=== PATIENT | female | born 1950 | race Caucasian/White ===

== ENCOUNTER 2018-10-21 09:40 | Day surgery (SDC) | payer OTHER ==
[2018-10-21] MEDS ORDERED: BUPIVACAINE 0.5% PF 10 ML VIAL ONE (09:43)
[2018-10-21] MEDS ORDERED: ALBUTEROL 2.5 MG/3 ML NEB SOL NEB ONE (09:59)
[2018-10-21] MEDS ORDERED: Ringers Lactate 1,000 ML IV ONE ×2 (09:59→11:27)
[2018-10-21] MEDS ORDERED: CEFOXITIN/SWI 1gm 1 GM/10 ML SYR ONE (09:59)
--- NOTE | 2018-10-21 10:01 | RAD REPORT ---
EXAM DESCRIPTION: RAD - Chest Pa And Lat (2 Views) - 10/21/2018 9:51 am CLINICAL HISTORY: PRE-OP Chest pain. COMPARISON: Chest Pa And Lat (2 Views) dated 09/10/2018; Chest Pa And Lat (2 Views) dated 08/06/2016 FINDINGS: Linear atelectasis is seen in the right mid lung. Opacity in the right lung base is likely related to a small right pleural effusion. The heart is mildly prominent in size. No displaced fract ures.
[2018-10-21] MEDS ORDERED: ALBUTEROL 2.5 MG/3 ML NEB SOL ONE (10:10)
[2018-10-21 10:17] LABS: Absolute Monocytes 0.9 K/uL (0.1-1.3); Basophils % 0.3 % (0-1.3); Eosinophils % 1.2 % (0-4.4); Hematocrit 43.1 % (36.0-45.0); Lymphocytes % 19.8 % (15.3-44.8); MPV 8.7 fL (7.6-11.3); Monocytes % 8.8 % (3.3-12.3); RBC Red Blood Cell Count 4.73 M/uL (3.86-4.86)
[2018-10-21] MEDS ORDERED: METHYLPREDNISOLONE 125 MG INJ ONE (10:23)
[2018-10-21 10:32] LABS: Albumin 4.1 g/dL (3.4-5.0); Bilirubin Direct 0.1 mg/dL (0-0.2); Bilirubin Total 0.4 mg/dL (0.2-1.0); Potassium 3.9 mmol/L (3.5-5.1); Protein, Total 8.2 g/dL (6.4-8.2)
[2018-10-21] MEDS ORDERED: PROPOFOL 200 MG/20 ML VIAL IV ONE (10:36)
[2018-10-21] MEDS ORDERED: MIDAZOLAM HCL 2 MG/2 ML INJ ONE (10:36)
[2018-10-21] MEDS ORDERED: GLYCOPYRROLATE 0.2 MG/ML SYR ONE ×2 (10:37)
[2018-10-21] MEDS ORDERED: LIDOCAINE 2% MPF 5 ML VIAL ONE (10:37)
[2018-10-21] MEDS ORDERED: FENTANYL CITR 250 MCG/5 ML ONE (10:39)
[2018-10-21] MEDS ORDERED: ROCURONIUM 50 MG/5 ML VIAL IV ONE (10:40)
[2018-10-21] MEDS ORDERED: ONDANSETRON 4 MG/2 ML VIAL ONE (10:41)
[2018-10-21] MEDS ORDERED: NEOSTIGMINE 1 MG/ML -10 ML VIAL ONE (10:41)
--- NOTE | 2018-10-21 10:56 | EKG ---
Test Date: 2018-10-21 Test Time: 08:54:54 Business Analyst Manager: OMAR MEASUREMENT RESULTS: Intervals: Rate: 68 OH: 156 QRSD: 78 QT: 426 QTc: 452 [place]: P: 55 OH: 156 QRS: 24 T: 87 INTERPRETIVE STATEMENTS: Normal sinus rhythm Possible Inferior infarct, age undetermined Abnormal ECG No previous ECG available for comparison Electronically Signed On 10-21-18 10:54:58 MANUFACTURING APPLICATIONS ENGINEER by Roland Wilson
[2018-10-21] MEDS ORDERED: EPHEDRINE SULF 50 MG/ML VIAL ONE (11:09)
--- NOTE | 2018-10-21 11:34 | P.BOP ---
Preoperative diagnosis: acute cholecystitis, symptomatic cholelithiasis, incarcerated umbilical her Postoperative diagnosis: same Primary procedure: 1. Laparoscopic cholecystectomy Secondary procedure: 2. open repair of incarcerated umbilical hernia Estimated blood loss: <10cc Specimen: gb Anesthesia: General Complications: None Transferred to: Recovery Room Condition: Good
[2018-10-21] MEDS ORDERED: HYDROCODONE/APAP 5/325 MG TAB ONE (13:14)
--- NOTE | 2018-10-21 22:51 | OP ---
Date of Procedure: 10/21/2018 Surgeon: Aron Robbins MD Preoperative Diagnoses: Acute cholecystitis, symptomatic cholelithiasis, incarcerated umbilical juanita ia. Postoperative Diagnoses: Acute cholecystitis, symptomatic cholelithiasis, incarcerated umbilical her juliane. Procedures: 1.Laparoscopic cholecystectomy. 2.Open repair of incarcerated umbilical hernia. Specimen: Gallbladder. Anesthesia: General plus local. Indications: This is the case of a 68-year-old patient, comes to us with above diagnosis. Grayson si gn positive, acute abdominal pain. She was advised importance of laparoscopic, possible open cholecy stectomy with benefits and risks including, but not limited to infection, bleeding, damage to adjacen t structures, anesthesia complications, choledocholithiasis, bile leak, pancreatitis, [place] and even sreedhar th. She also understands this may not relieve the symptoms. She might need more than one surgical i ntervention. She understood and signed a consent. Description Of Procedure: The patient was brought to the operating room and placed in supine positio n. Anesthesia was without complication. Abdominal area was prepped and draped in a sterile fashion. Marcaine 0.5% was injected for local anesthetic, followed by sharp incision of the skin in the infr aumbilical region. We noticed the patient to have a small umbilical hernia with incarcerated omentum and carefully reduce it back into the abdominal cavity after fully inspected making sure it was okay and removed some adhesions from the small hernia sac. The fascia edges were cleaned. After that, I placed Vicryl #1 inside the fascia. Kike trocar was carefully introduced. No bleeding was obtain ed. After that, I placed 3 more trocars in the right upper quadrant under direct visualization. The gallbladder was distended, so we put an Endo needle under direct visualization, aspirate the gallbla dder, remove the needle under direct visualization and then put a grasper in the fundus of the gallbl adder, another grasper in the infundibulum, retracted the gallbladder in the inferolateral fashion ex posing the triangle of Calot, obtaining critical view of safety. The cystic duct and cystic artery w ere clearly isolated free circumferentially and a connection between those and the gallbladder were c learly identified. I proceeded to ligate those by using at least 3 clips proximal, 1 clip distal, li gation in middle. Same was done with the cystic artery. No bile leak. No bleeding. The gallbladde r was removed from liver using Bovie cauterizer and removed from abdominal cavity using an EndoCatch through the umbilical incision. The area was irrigated. Suction was done. Clips were intact. No b ile leak. No bleeding. The gallbladder fossa with no bile leak. No bleeding. At that moment, I pr oceeded to remove the trocars in direct vision. Deflated the pneumoperitoneum. Closed the fascia wi th #1 Vicryl, close the umbilical hernia with #1 Vicryl. Irrigated subcutaneous tissue, closed with 3-0 Chromic and skin with margaret. Sponge count and instrument counts were correct. The patient jose erated the procedure well. The patient was sent to recovery in stable condition. Disposition: Home. Activity: As tolerated. No heavy lifting. Followup: Follow up in my office in 1 week. Call for appointment [phone]. Keep the area dry for 48 hours, then may shower. Medications include Vicodin q.4 hours p.r.n. pain. The patient already taking Augmentin. JEB/JAVI Voice ID: [id number] Report ID: [id number]
== END 2018-10-21 14:45 | disposition home or self-care (01) ==
LOC: OR 09:40
PROVIDERS: ATTEND Surgery
PROC: 0WQF0ZZ Repair Abdominal Wall, Open Approach (ICD-10-PCS; 2018-10-21)
PROC: 0FT44ZZ Resection of Gallbladder, Percutaneous Endoscopic Approach (ICD-10-PCS; principal; 2018-10-21 09:30)
DX: K80.12 Calculus of gallbladder with acute and chronic cholecystitis without obstruction (principal); K42.0 Umbilical hernia with obstruction, without gangrene; I10 Essential (primary) hypertension; Z79.82 Long term (current) use of aspirin; Z80.1 Family history of malignant neoplasm of trachea, bronchus and lung; Z80.0 Family history of malignant neoplasm of digestive organs; Z83.3 Family history of diabetes mellitus
CPT/HCPCS: 93005; 85025; 80048; 36415; 82150; 80076; 88304; 83690; 71046; 47562; 49587; J2704; J2710; J2250; J3010; J2930; J2405

== ENCOUNTER 2018-10-24 18:51 | Inpatient (IN) | payer OTHER ==
[2018-10-24] MEDS ORDERED: VANCOMYCIN 1 GM/VIAL ONE (19:45)
[2018-10-24] MEDS ORDERED: NA CHLORIDE 0.9% 1,000 ML ONE (19:46)
[2018-10-24] MEDS ORDERED: CEFEPIME 1 GM/100 ML BAG IV ONE (19:46)
[2018-10-24] MEDS ORDERED: NA CHLORIDE 0.9% 250 ML ONE (19:46)
[2018-10-24 19:47] LABS: Absolute Lymphocytes (CBC) 2.4 K/uL (0.7-4.9); Absolute Monocytes 1.2 K/uL (0.1-1.3); Absolute Neutrophil 6.9 K/uL (1.8-8.0); Basophils % 0.5 % (0-1.3); Eosinophils % 1.7 % (0-4.4); Hematocrit 39.1 % (36.0-45.0); Lymphocytes % 22.4 % (15.3-44.8); MPV 8.6 fL (7.6-11.3); Monocytes % 11.2 % (3.3-12.3); RBC Red Blood Cell Count 4.31 M/uL (3.86-4.86)
[2018-10-24 19:51] LABS: Protime INR 1.04
[2018-10-24 20:10] LABS: ALT/SGPT 41 U/L (12-78); AST/SGOT 16 U/L (15-37); Albumin 3.4 g/dL (3.4-5.0); Alkaline Phosphatase 118 U/L (45-117); BUN Blood Urea Nitrogen 16 mg/dL (7-18); Bicarbonate 26 mmol/L (21-32); Bilirubin Direct 0.1 mg/dL (0-0.2); Bilirubin Total 0.3 mg/dL (0.2-1.0); CKMB Creatine Kinase MB < 1.0 ng/mL (0.3-3.6); Creatine Phosphokinase 29 U/L (26-192); Glucose Level 122 mg/dL (74-106); Lipase 73 U/L (73-393); NT PRO-BNP 107 pg/mL (<125); Potassium 3.4 mmol/L (3.5-5.1); Protein, Total 7.1 g/dL (6.4-8.2); Sodium Level 139 mmol/L (136-145); Troponin (Emerg Dept Use Only) < 0.02 ng/mL (0.0-0.045)
--- NOTE | 2018-10-24 20:19 | EDPHYS ---
Physician Documentation [facility] Name: Bharti Diallo Age: 68 yrs Sex: Female : 1950 Arrival Date: 10/24/2018 Time: 18:53 Bed 6 Private MD: Edy Gamez ED Physician Vasquez Styles HPI: 10/24 20:05 This 68 yrs old Female presents to ER via Wheelchair with complaints of johann Breathing Difficulty. 20:05 The patient has shortness of breath at rest, with light activity. Onset: The johann symptoms/episode began/occurred just prior to arrival. Duration: The symptoms are continuous, and are steadily getting worse, are intermittent, with episodes lasting seconds at a time. The patient's shortness of breath is aggravated by light activity, talking, walking, is alleviated by nothing, application of supplemental oxygen. Associated signs and symptoms: The patient has no apparent associated signs or symptoms. Severity of symptoms: in the emergency department the symptoms have improved mildly, Pain is currently a 10 / 10. The patient has experienced similar episodes in the past, multiple times. Historical: - Allergies: 19:19 No Known Allergies; la1 - Home Meds: 19:19 amlodipine 5 mg tab 1 tab once daily [Active]; hydrochlorothiazide-olmesartan la1 12.5mg/40mg once daily [Active]; atorvastatin 10 mg oral tab 1 tab once daily [Active]; montelukast 10 mg oral tab 1 tab once daily [Active]; levothyroxine 137 mcg tab 1 tab once daily [Active]; metoprolol tartrate 50 mg Oral tab 1 tab once daily [Active]; aspirin 81 mg Oral chew 1 tab once daily [Active]; Duexis 800-26.6 mg oral tab 1 tab 3 times per day [Active]; Symbicort 160-4.5 mcg/actuation inhalation HFAA 2 puffs 2 times per day [Active]; - PMHx: 19:19 Sleep Apnea; Hypertension; Asthma; la1 - Immunization history:: Adult Immunizations up to date. - Social history:: Smoking status: Patient/guardian denies using tobacco. - Ebola Screening: : No symptoms or risks identified at this time. - Family history:: not pertinent. ROS: 20:05 Constitutional: Negative for fever, chills, and weight loss, Eyes: Negative for injury, johann pain, redness, and discharge, ENT: Negative for injury, pain, and discharge, Neck: Negative for injury, pain, and swelling, Cardiovascular: Negative for chest pain, palpitations, and edema, Abdomen/GI: Negative for abdominal pain, nausea, vomiting, diarrhea, and constipation, Back: Negative for injury and pain, : Negative for injury, bleeding, discharge, and swelling, MS/Extremity: Negative for injury and deformity, Skin: Negative for injury, rash, and discoloration, Neuro: Negative for headache, weakness, numbness, tingling, and seizure, Psych: Negative for depression, anxiety, suicide ideation, homicidal ideation, and hallucinations, Allergy/Immunology: Negative for hives, rash, and allergies, Endocrine: Negative for neck swelling, polydipsia, polyuria, polyphagia, and marked weight changes, Hematologic/Lymphatic: Negative for swollen nodes, abnormal bleeding, and unusual bruising. 20:05 Respiratory: Positive for cough, pleurisy, of the chest and right breast. Exam: 20:05 Constitutional: This is a well developed, well nourished patient who is awake, alert, johann and in no acute distress. Head/Face: Normocephalic, atraumatic. Eyes: Pupils equal round and reactive to light, extra-ocular motions intact. Lids and lashes normal. Conjunctiva and sclera are non-icteric and not injected. Cornea within normal limits. Periorbital areas with no swelling, redness, or edema. ENT: Nares patent. No nasal discharge, no septal abnormalities noted. Tympanic membranes are normal and external auditory canals are clear. Oropharynx with no redness, swelling, or masses, exudates, or evidence of obstruction, uvula midline. Mucous membranes moist. Neck: Trachea midline, no thyromegaly or masses palpated, and no cervical lymphadenopathy. Supple, full range of motion without nuchal rigidity, or vertebral point tenderness. No Meningismus. Cardiovascular: Regular rate and rhythm with a normal S1 and S2. No gallops, murmurs, or rubs. Normal PMI, no JVD. No pulse deficits. Back: No spinal tenderness. No costovertebral tenderness. Full range of motion. Female : Normal external genitalia. Skin: Warm, dry with normal turgor. Normal color with no rashes, no lesions, and no evidence of cellulitis. MS/ Extremity: Pulses equal, no cyanosis. Neurovascular intact. Full, normal range of motion. Neuro: Awake and alert, GCS 15, oriented to person, place, time, and situation. Cranial nerves II-XII grossly intact. Motor strength 5/5 in all extremities. Sensory grossly intact. Cerebellar exam normal. Normal gait. Psych: Awake, alert, with orientation to person, place and time. Behavior, mood, and affect are within normal limits. 20:05 Chest/axilla: Inspection: normal, no abrasion, no abscess, no assymetry, no cellulitis, no deformity, no ecchymosis, no evidence of flail chest, no paradoxical chest wall movement, no puncture, no rash, no scar(s), no acute changes, Palpation: tenderness, that is mild, of the right lateral posterior chest and right lateral anterior chest. 20:05 Cardiovascular: Rate: normal, Rhythm: regular, Pulses: Pulses are 4+ in bilateral radial, brachial, femoral, popliteal, posterior tibial and and dorsalis pedis arteries.. Heart sounds: normal, Edema: is not appreciated, JVD: is not appreciated. Vital Signs: 19:06 BP 149 / 75; Pulse 98; Resp 26; Temp 98(O); Pulse Ox 96% on R/A; Weight 81.65 kg; tl1 Height 5 ft. 6 in. (167.64 cm); Pain 8/10; 19:50 BP 132 / 77; Pulse 87; Resp 20; Pulse Ox 94% on R/A; la1 21:14 BP 135 / 75; Pulse 71; Resp 16; Pulse Ox 92% on R/A; la1 19:06 Body Mass Index 29.05 (81.65 kg, 167.64 cm) tl1 MDM: 19:11 Patient medically screened. ms2 19:30 Patient medically screened. [facility] 20:05 Data reviewed: vital signs, nurses notes, lab test result(s), EKG, radiologic studies, [facility] CT scan, plain films. 10/24 19:11 Order name: Blood Culture Adult (2) [facility] 10/24 19:11 Order name: BMP; Complete Time: 20:11 [facility] 10/24 19:11 Order name: CBC with Diff; Complete Time: 20:05 [facility] 10/24 19:11 Order name: Ckmb; Complete Time: 20:11 ms2 10/24 19:11 Order name: CPK; Complete Time: 20:11 ms2 10/24 19:11 Order name: D-Dimer; Complete Time: 20:05 ms2 10/24 19:11 Order name: Hepatic Function; Complete Time: 20:11 ms2 10/24 19:11 Order name: Lipase; Complete Time: 20:11 [facility] 10/24 19:11 Order name: Magnesium; Complete Time: 20:11 [facility] 10/24 19:11 Order name: NT PRO-BNP; Complete Time: 20:11 ms2 10/24 19:11 Order name: PT-INR; Complete Time: 20:05 ms2 10/24 19:11 Order name: Ptt, Activated; Complete Time: 20:05 [facility] 10/24 19:11 Order name: Troponin (emerg Dept Use Only); Complete Time: 20:11 ms2 10/24 20:12 Order name: Procalcitonin; Complete Time: 22:23 [facility] 10/24 20:02 Order name: Chest Single View XRAY; Complete Time: 22:23 [facility] 10/24 20:04 Order name: CT Aorta for Dissection; Complete Time: 21:18 [facility] 10/24 20:15 Order name: US Extremity Venous W Compression Travis; Complete Time: 22:23 [facility] 10/24 21:08 Order name: CBC with Automated Diff EDMS 10/24 21:08 Order name: CBC with Automated Diff EDMS 10/24 21:08 Order name: Comprehensive Metabolic Panel [facility] 10/24 21:08 Order name: Comprehensive Metabolic Panel [facility] 10/24 19:11 Order name: EKG; Complete Time: 19:12 ms2 10/24 19:11 Order name: Cardiac monitoring; Complete Time: 19:49 ms2 10/24 19:11 Order name: EKG - Nurse/Tech; Complete Time: 19:49 ms2 10/24 19:11 Order name: IV Saline Lock; Complete Time: 19:49 ms2 10/24 19:11 Order name: Labs collected and sent; Complete Time: 19:49 ms2 10/24 19:11 Order name: O2 Per Protocol; Complete Time: 19:49 ms2 10/24 19:11 Order name: O2 Sat Monitoring; Complete Time: 19:49 ms2 10/24 21:08 Order name: CONS Pharmacy Consult EDIN 10/24 21:08 Order name: Heart Healthy [facility] Administered Medications: 19:48 Drug: NS 0.9% 1000 ml Route: IV; Rate: 1 bolus; Site: right antecubital; la1 21:00 Follow up: Response: No adverse reaction; No change in condition; IV Status: Completed fc infusion; IV Intake: 1000ml 19:48 Drug: Cefepime 1 grams Route: IVPB; Rate: 200 ml/hr; Infused Over: 30 mins; Site: right la1 antecubital; 20:15 Follow up: Response: No adverse reaction; No change in condition; IV Status: Completed fc infusion; IV Intake: 100ml 20:55 Drug: Zofran 4 mg Route: IVP; Site: right antecubital; fc 21:33 Follow up: Response: No adverse reaction la1 20:55 Drug: NS 0.9% with KCl 20 mEq/L 1000 ml Route: IV; Rate: 125 ml/hr; Site: right fc antecubital; 21:32 Follow up: IV Status: Infusion continued upon admission la1 20:57 Drug: Pepcid 20 mg Route: IVP; Site: right antecubital; fc 21:33 Follow up: Response: No adverse reaction la1 21:00 Drug: fentaNYL (PF) 25 mcg Route: IVP; Site: right antecubital; fc 21:33 Follow up: Response: No adverse reaction; Pain is decreased la1 21:05 Drug: vancoMYCIN 1 grams Route: IVPB; Infused Over: 2 hrs; Site: right antecubital; fc 22:03 Follow up: Response: No adverse reaction; No change in condition; IV Status: Infusion fc continued upon admission; IV Intake: 160ml 22:10 Not Given (patient admitted): fentaNYL (PF) 25 mcg IVP once tl1 Disposition: 10/24/18 20:18 Hospitalization ordered by Edgardo Brewer for Inpatient Admission. Preliminary diagnosis are Dyspnea, Hypoxemia, Atelectasis, Pleurisy, Abdominal tenderness - sp cholecystectomy 4 days, Hypokalemia, Pneumonia due to other specified bacteria - right lower lobe, Solitary pulmonary nodule. - Bed requested for Telemetry/MedSurg (Inpatient). - Status is Inpatient Admission. fc - Condition is Fair. - Problem is new. - Symptoms have improved. UTI on Admission? No Signatures: Dispatcher [employer] EDIN Yessica Roldan RN RN Vasquez Styles MD MD cha Chretien, Felicia, RN RN Shmuel Jc RN RN mateo1 Edgardo Bautista MD MD ma2 Naye Paiz RN tl1 Corrections: (The following items were deleted from the chart) 20:12 19:11 Chest For PE Angio+CT.RAD.BRZ ordered. EDIN EDIN 21:15 20:18 Hospitalization Ordered by Edgardo Brewer MD for Inpatient Admission. Preliminary diagnosis is Dyspnea; Hypoxemia; Atelectasis; Pleurisy; Abdominal tenderness - sp cholecystectomy 4 days; Hypokalemia. Bed requested for Telemetry/MedSurg (Inpatient). Status is Inpatient Admission. Condition is Fair. Problem is new. Symptoms have improved. UTI on Admission? No. johann 21:22 21:15 10/24/2018 20:18 Hospitalization Ordered by Edgardo Brewer MD for Inpatient [facility] Admission. Preliminary diagnosis is Dyspnea; Hypoxemia; Atelectasis; Pleurisy; Abdominal tenderness - sp cholecystectomy 4 days; Hypokalemia. Bed requested for Telemetry/MedSurg (Inpatient). Status is Inpatient Admission. Condition is Fair. Problem is new. Symptoms have improved. UTI on Admission? No. mw 22:33 21:22 10/24/2018 20:18 Hospitalization Ordered by Edgardo Brewer MD for Inpatient Admission. Preliminary diagnosis is Dyspnea; Hypoxemia; Atelectasis; Pleurisy; Abdominal tenderness - sp cholecystectomy 4 days; Hypokalemia; Pneumonia due to other specified bacteria - right lower lobe; Solitary pulmonary nodule. Bed requested for Telemetry/MedSurg (Inpatient). Status is Inpatient Admission. Condition is Fair. Problem is new. Symptoms have improved. UTI on Admission? No. johann
--- NOTE | 2018-10-24 20:19 | ER ---
Nurse's Notes [facility] Name: Bharti Diallo Age: 68 yrs Sex: Female : 1950 Arrival Date: 10/24/2018 Time: 18:53 Bed 6 Private MD: Edy Gamez Diagnosis: Dyspnea;Hypoxemia;Atelectasis;Pleurisy;Abdominal tenderness-sp cholecystectomy 4 days;Hypokalemia;Pneumonia due to other specified bacteria-right lower lobe;Solitary pulmonary nodule Presentation: 10/24 19:04 Presenting complaint: Patient states: I have been having shortness of breath for approx tl1 2 months with worsening of symptoms this week. Seeing Dr Pollock for fluid on lungs and taking amoxicillin for 2 weeks. Transition of care: patient was not received from another setting of care. Onset of symptoms is unknown. Risk Assessment: Do you want to hurt yourself or someone else? Patient reports no desire to harm self or others. Initial Sepsis Screen: Does the patient meet any 2 criteria? RR > 20 per min. Does the patient have a suspected source of infection? No. Patient's initial sepsis screen is negative. Care prior to arrival: Medication(s) given:. 19:04 Method Of Arrival: Wheelchair tl1 19:04 Acuity: BONNIE 2 tl1 Triage Assessment: 22:26 General: Appears uncomfortable. Respiratory: Onset: The symptoms/episode tl1 began/occurred. Respiratory: Airway is patent Trachea midline Breath sounds are diminished in right lateral anterior chest and right lateral posterior chest. Historical: - Allergies: 19:19 No Known Allergies; la1 - Home Meds: 19:19 amlodipine 5 mg tab 1 tab once daily [Active]; hydrochlorothiazide-olmesartan la1 12.5mg/40mg once daily [Active]; atorvastatin 10 mg oral tab 1 tab once daily [Active]; montelukast 10 mg oral tab 1 tab once daily [Active]; levothyroxine 137 mcg tab 1 tab once daily [Active]; metoprolol tartrate 50 mg Oral tab 1 tab once daily [Active]; aspirin 81 mg Oral chew 1 tab once daily [Active]; Duexis 800-26.6 mg oral tab 1 tab 3 times per day [Active]; Symbicort 160-4.5 mcg/actuation inhalation HFAA 2 puffs 2 times per day [Active]; - PMHx: 19:19 Sleep Apnea; Hypertension; Asthma; la1 - Immunization history:: Adult Immunizations up to date. - Social history:: Smoking status: Patient/guardian denies using tobacco. - Ebola Screening: : No symptoms or risks identified at this time. - Family history:: not pertinent. Screenin:21 Abuse screen: Denies threats or abuse. Nutritional screening: No deficits noted. la1 Tuberculosis screening: No symptoms or risk factors identified. Fall Risk None identified. Assessment: 19:20 General: Appears uncomfortable, Behavior is calm, cooperative. Pain: Complains of pain la1 in right breast Pain currently is 5 out of 10 on a pain scale. Quality of pain is described as sharp. Neuro: Level of Consciousness is awake, alert, obeys commands, Oriented to person, place, time, situation. Cardiovascular: Heart tones S1 S2 present Capillary refill < 3 seconds Patient's skin is warm and dry. Rhythm is regular. Respiratory: Reports pain with cough pain with respiration Airway is patent Respiratory effort is even, unlabored, Respiratory pattern is regular, tachypnea Breath sounds are clear bilaterally. the patient has mild shortness of breath. GI: No signs and/or symptoms were reported involving the gastrointestinal system. : No signs and/or symptoms were reported regarding the genitourinary system. 21:32 Reassessment: Patient appears in no apparent distress at this time. No changes from la1 previously documented assessment. Patient and/or family updated on plan of care and expected duration. Pain level reassessed. Vital Signs: 19:06 BP 149 / 75; Pulse 98; Resp 26; Temp 98(O); Pulse Ox 96% on R/A; Weight 81.65 kg; tl1 Height 5 ft. 6 in. (167.64 cm); Pain 8/10; 19:50 BP 132 / 77; Pulse 87; Resp 20; Pulse Ox 94% on R/A; la1 21:14 BP 135 / 75; Pulse 71; Resp 16; Pulse Ox 92% on R/A; la1 19:06 Body Mass Index 29.05 (81.65 kg, 167.64 cm) tl1 ED Course: 18:53 Patient arrived in ED. mr 18:54 Edy Gamez MD is Private Physician. mr 19:06 Triage completed. tl1 19:07 Arm band placed on right wrist. tl1 19:09 Edgardo Bautista MD is Attending Physician. ma2 19:13 Shmuel Jc, PRETTY is Primary Nurse. la1 19:20 Radiology exam delayed due to lab results not completed at this time. (BUN/Creatinine). kw1 19:21 Placed in gown. Bed in low position. Call light in reach. la1 19:30 Vasquez Styles MD is Attending Physician. johann 19:59 Inserted saline lock: 20 gauge in right antecubital area, using aseptic technique. ag4 Blood collected. 20:12 X-ray completed. Portable x-ray completed in exam room. Patient tolerated procedure kw well. 20:13 Chest Single View XRAY In Process Unspecified. EDMS 20:16 Edgardo Brewer MD is Hospitalizing Provider. johann 20:45 CT Aorta for Dissection In Process Unspecified. EDMS 21:14 Ultrasound completed. Patient tolerated well. sg3 21:15 US Extremity Venous W Compression Travis In Process Unspecified. EDMS 21:57 No provider procedures requiring assistance completed. Patient admitted, IV remains in fc place. Administered Medications: 19:48 Drug: NS 0.9% 1000 ml Route: IV; Rate: 1 bolus; Site: right antecubital; la1 21:00 Follow up: Response: No adverse reaction; No change in condition; IV Status: Completed fc infusion; IV Intake: 1000ml 19:48 Drug: Cefepime 1 grams Route: IVPB; Rate: 200 ml/hr; Infused Over: 30 mins; Site: right la1 antecubital; 20:15 Follow up: Response: No adverse reaction; No change in condition; IV Status: Completed fc infusion; IV Intake: 100ml 20:55 Drug: Zofran 4 mg Route: IVP; Site: right antecubital; 21:33 Follow up: Response: No adverse reaction la1 20:55 Drug: NS 0.9% with KCl 20 mEq/L 1000 ml Route: IV; Rate: 125 ml/hr; Site: right fc antecubital; 21:32 Follow up: IV Status: Infusion continued upon admission la1 20:57 Drug: Pepcid 20 mg Route: IVP; Site: right antecubital; 21:33 Follow up: Response: No adverse reaction la1 21:00 Drug: fentaNYL (PF) 25 mcg Route: IVP; Site: right antecubital; 21:33 Follow up: Response: No adverse reaction; Pain is decreased la1 21:05 Drug: vancoMYCIN 1 grams Route: IVPB; Infused Over: 2 hrs; Site: right antecubital; 22:03 Follow up: Response: No adverse reaction; No change in condition; IV Status: Infusion fc continued upon admission; IV Intake: 160ml 22:10 Not Given (patient admitted): fentaNYL (PF) 25 mcg IVP once tl1 Intake: 20:15 IV: 100ml; Total: 100ml. fc 21:00 IV: 1000ml; Total: 1100ml. fc 22:03 IV: 160ml; Total: 1260ml. fc Outcome: 20:18 Decision to Hospitalize by Provider. [facility] 22:01 Admitted to Med/surg accompanied by tech, via wheelchair, room 221, with chart, Report fc called to Usha OLSEN 22:01 Condition: good 22:01 Discharge instructions given to patient, family, Instructed on the need for admit, Demonstrated understanding of instructions. 22:33 Patient left the ED. fc Signatures: Dispatcher [employer] EDMS Vasquez Styles MD MD cha Rivera, Naz mr RoccoSharon RN RN Bernadine Sorto Lee, RN RN la1 Naye Paiz RN RN 1 Nathalie Hyman Sarah sg3 Alzahri, Mohammad, MD MD ma2 Chris Menon ag4
[2018-10-24] MEDS ORDERED: NS KCL 20MEQ 1,000 ML IV ONE (20:49)
[2018-10-24] MEDS ORDERED: FENTANYL CITR 100 MCG/2 ML ONE (20:49)
[2018-10-24] MEDS ORDERED: ONDANSETRON 4 MG/2 ML VIAL ONE (20:49)
[2018-10-24] MEDS ORDERED: FAMOTIDINE 20 MG/2 ML VIAL IV ONE (20:49)
[2018-10-24] MEDS ORDERED: IPRATROPIUM BROM 0.5MG/2.5ML NEB PRN (21:04)
[2018-10-24] MEDS ORDERED: MORPHINE 2 MG/ML SYR IV PRN (21:04)
[2018-10-24] MEDS ORDERED: ONDANSETRON 4 MG/2 ML VIAL IV PRN (21:04)
[2018-10-24] MEDS ORDERED: ALBUTEROL 2.5 MG/3 ML NEB SOL NEB PRN (21:04)
--- NOTE | 2018-10-24 21:18 | RAD REPORT ---
EXAM DESCRIPTION: CT - Angio Aorta For Dissection - 10/24/2018 8:45 pm CLINICAL HISTORY: . Chest and abdominal pain. Shortness of breath COMPARISON: October 08, 2018 CT chest TECHNIQUE: Computed tomography angiography of the chest, abdomen pelvis were obtained. 100 cc Isovue 370 was administered intravenously. Coronal and sagittal reconstruction were performed. MIP 3D reconstruction was performed All CT scans are performed using dose optimization technique as appropriate and may include automated exposure control or mA/KV adjustment according to patient size. FINDINGS: An aortic dissection is not seen. An aortic aneurysm is not displayed. Bovine aortic The celiac, SMA and CASH are patent . A 27 millimeter right lower lobe nodule unchanged. A mild right lower lobe infiltrate unchanged. Mild right lower lobe atelectasis has developed. A pericardial effusion is not seen. A small to moderate right pleural effusion is present. The liver,spleen, pancreas adrenals kidneys demonstrate no significant abnormality. There no evidence diverticulitis. Cholecystectomy has been performed IMPRESSION: Negative for an aortic dissection. Mild right lower lobe infiltrate consistent with pneumonia 27 millimeter right lower lobe nodule is unchanged and may represent infection, atelectasis or neopla sm.
--- NOTE | 2018-10-24 21:20 | RAD REPORT ---
EXAM DESCRIPTION: Ashat Single View10/24/2018 8:13 pm CLINICAL HISTORY: Chest pain COMPARISON: October 21 2018 FINDINGS: Small to moderate right pleural effusion is present. Mild right lower lobe opacities have worsened. Heart is mildly to moderately enlarged
--- NOTE | 2018-10-24 21:20 | RAD REPORT ---
EXAM DESCRIPTION: USExtrem Venous W Compress Bil10/24/2018 9:15 pm CLINICAL HISTORY: Bilateral leg swelling COMPARISON: none FINDINGS: The common femoral, superficial femoral, popliteal and posterior tibial veins bilaterally are compressible and demonstrate augmentation. Doppler demonstrates good flow. IMPRESSION: No evidence of deep venous thrombosis involving either lower extremity.
[2018-10-25] MEDS: NA CHLORIDE 0.9% 1,000 ML IV SCH
[2018-10-25 05:04] LABS: Absolute Monocytes 0.9 K/uL (0.1-1.3); Absolute Neutrophil 5.3 K/uL (1.8-8.0); Basophils % 0.5 % (0-1.3); Eosinophils % 2.5 % (0-4.4); MPV 8.2 fL (7.6-11.3); Monocytes % 10.2 % (3.3-12.3); RBC Red Blood Cell Count 3.96 M/uL (3.86-4.86)
[2018-10-25 05:13] LABS: ALT/SGPT 31 U/L (12-78); AST/SGOT 13 U/L (15-37); Albumin 2.9 g/dL (3.4-5.0); Alkaline Phosphatase 103 U/L (45-117); BUN Blood Urea Nitrogen 13 mg/dL (7-18); Bicarbonate 27 mmol/L (21-32); Bilirubin Total 0.4 mg/dL (0.2-1.0); Glucose Level 107 mg/dL (74-106); Potassium 3.9 mmol/L (3.5-5.1); Protein, Total 6.2 g/dL (6.4-8.2); Sodium Level 142 mmol/L (136-145)
[2018-10-25] MEDS: ACETAMINOPHEN 500 MG TAB PO PRN ×3 (06:49→17:45)
[2018-10-25] MEDS ORDERED: MORPHINE 4 MG/ML SYR IV PRN (07:31)
[2018-10-25] MEDS ORDERED: PNEUMOCOCCAL VACCINE 0.5 ML IMVAC ONE (08:00)
--- NOTE | 2018-10-25 09:53 | P.HP ---
Certification for Inpatient Patient admitted to: Inpatient With expected LOS: >2 Midnights Patient will require the following post-hospital care: None Practitioner: I am a practitioner with admitting privileges, knowledge of patient current condition, hospital course, and medical plan of care. Services: Services provided to patient in accordance with Admission requirements found in Title 42 Section 412.3 of the Code of Federal Regulations Patient History Date of Service: 10/24/18 Reason for admission: Pneumonia History of Present Illness: Patient is a 68-year-old female who recently had a cholecystectomy. Prior to the cholecystectomy she was diagnose with right lower lobe pneumonia. She has seen the drain tile machine operator, Dr. Taylor. He recommended Augmentin for 2 weeks. After finishing the Augmentin patient still has not noticed any improvement. She actually is finding it harder to breathe and take a deep breath. She came into the hospital and the CT scan dissection revealed a right lower lobe infiltrate. This was similar to the prior pneumonia however the patient's pleural effusion on that side has gotten worse. Patient had a cholecystectomy a week ago and has done well from this. Liver function testing is normal. Patient be admitted to the hospital in will Consult Dr. Taylor at this time regarding the worsening pleural effusion and persistent right lower lobe pneumonia. This is concerning for a possible lung mass and patient may need diagnostic thoracentesis pending pulmonary evaluation. Allergies No Known Allergies Allergy (Verified 10/24/18 22:37) Home Medications: Amlodipine [Norvasc*] 5 mg PO DAILY 10/25/18 Aspirin [Adult Aspirin] 1 tab PO DAILY 10/25/18 Atorvastatin Calcium [Lipitor*] 10 mg PO DAILY 10/25/18 Budesonide/Formoterol Fumarate [Symbicort 160-4.5 Mcg Inhaler] 2 puff IH BID 11/10 Hydrochlorothiazide-Olmesartan 12.5mg-40mg 1 tab PO DAILY 10/25/18 Ibuprofen/Famotidine [Duexis 800-26.6 mg Tablet] 1 tab PO TID 10/25/18 Levothyroxine Sodium 1 tab PO DAILY 10/25/18 Metoprolol Tartrate [Lopressor*] 50 mg PO DAILY 10/25/18 Montelukast Sodium 10 mg PO DAILY 10/25/18 - Past Medical/Surgical History Has patient received pneumonia vaccine in the past: No Diabetic: No -: HTN -: HYPOTHYROIDISM -: HIGH CHOLESTEROL -: SLEEP APNEA -: ASTHMA -: -: herniorrhaphy -: Cholecystectomy - Family History Father Family History: Reviewed- Non-Contributory - Social History Smoking Status: Never smoker Alcohol use: Yes Place of Residence: Home Review of Systems 10-point ROS is otherwise unremarkable Physical Examination - Vital Signs Temperature: 98.2 F Blood Pressure: 130/62 Pulse: 84 Respirations: 18 Pulse Ox (%): 94 - Physical Exam General: Alert, In no apparent distress, Oriented x3 HEENT: Atraumatic, PERRLA, Mucous membr. moist/pink, EOMI, Sclerae nonicteric Neck: Supple, 2+ carotid pulse no bruit, No LAD, Without JVD or thyroid abnormality Respiratory: Diminished (Right lung base), Crackles/rales Cardiovascular: Regular rate/rhythm, Normal S1 S2, No murmurs Gastrointestinal: Normal bowel sounds, Soft and benign, Non-distended, No tenderness Musculoskeletal: No clubbing, No swelling, No tenderness Integumentary: No rashes Neurological: Normal gait, Normal speech, Normal strength at 5/5 x4 extr, Normal tone, Sensation intact, Cranial nerves 3-12 intact, Normal affect Lymphatics: No axilla or inguinal lymphadenopathy - Studies Laboratory Data (last 24 hrs) 10/24/18 19:30: PT 12.3, INR 1.04, APTT 25.6 10/24/18 19:30: WBC 10.8, Hgb 13.3, Hct 39.1, Plt Count 314 10/24/18 19:30: Sodium 139, Potassium 3.4 L, BUN 16, Creatinine 0.96, Glucose 122 H, Magnesium 2.0, Total Bilirubin 0.3, AST 16, ALT 41, Alkaline Phosphatase 118 H, Lipase 73 Assessment & Plan - Problems (Diagnosis) (1) Right lower lobe pneumonia Current Visit: Yes Status: Acute (2) History of infection unresponsive to antibiotic therapy Current Visit: Yes Status: Acute (3) Status post cholecystectomy Current Visit: Yes Status: Acute (4) Pleural effusion, right Current Visit: Yes Status: Acute (5) Hypertension Current Visit: Yes Status: Acute - Plan 1. Continue with IV antibiotics 2. Awaiting sputum and blood culture 3. Repeat chest x-ray; may need right lateral decubitus film 4. May need to do diagnostic thoracentesis. Await pulmonary evaluation 5. Pulmonary consultation 6. Continue with nebs as needed 7. O2 per protocol 8. Continue with gentle hydration 9. Repeat labs including CBC and renal function in a.m. 10. GI and DVT prophylaxis Discharge Plan: Home Plan to discharge in: Greater than 2 days - Advance Directives Does patient have a Living Will: No Does patient have a Durable POA for Healthcare: No - Code Status/Comfort Care Code Status Assessed: Yes Code Status: Full Code Critical Care: No Time Spent Managing PTS Care (In Minutes): 50
[2018-10-25] MEDS ORDERED: MAGNESIUM HYDROXIDE 8% 30 ML PO ONE (11:30)
[2018-10-25] MEDS: PIPER/TAZO/NS 3.375gm 3.375 GM/100 ML BAG IVPB SCH ×2 (12:28→20:20)
--- NOTE | 2018-10-25 12:51 | P.PN ---
Subjective Date of Service: 10/25/18 Chief Complaint: Pneumonia Patient seen and examined at bedside. Chart reviewed. Case discussed with family members at bedside. Imaging and lab results discussed in detail with family members at bedside as well. Review of Systems 10-point ROS is otherwise unremarkable Physical Examination - Vital Signs Temperature: 98.2 F Blood Pressure: 130/62 Pulse: 84 Respirations: 18 Pulse Ox (%): 94 - Physical Exam General: Alert, In no apparent distress HEENT: Atraumatic, PERRLA, EOMI Neck: Supple, JVD not distended Respiratory: Normal air movement, Expiratory wheezes, Inspiratory wheezes Cardiovascular: Regular rate/rhythm, Normal S1 S2 Gastrointestinal: Normal bowel sounds, No tenderness Musculoskeletal: No tenderness Integumentary: No rashes Neurological: Normal speech, Normal tone, Normal affect Lymphatics: No axilla or inguinal lymphadenopathy - Studies Laboratory Data (last 24 hrs) 10/24/18 19:30: PT 12.3, INR 1.04, APTT 25.6 10/24/18 19:30: WBC 10.8, Hgb 13.3, Hct 39.1, Plt Count 314 10/24/18 19:30: Sodium 139, Potassium 3.4 L, BUN 16, Creatinine 0.96, Glucose 122 H, Magnesium 2.0, Total Bilirubin 0.3, AST 16, ALT 41, Alkaline Phosphatase 118 H, Lipase 73 Medications List Reviewed: Yes Assessment And Plan - Current Problems (Diagnosis) (1) Right lower lobe pneumonia Current Visit: Yes Status: Acute Plan: Right lower lobe pneumonia, failed outpatient therapy. -white blood cell count and pro calcitonin negative however patient was on antibiotics prior this could be falsely negative -started on IV Zosyn for now -pulmonology consulted. Will await further recommendation -IV incentive spirometer provided Qualifiers: Pneumonia type: due to unspecified organism Qualified Code(s): J18.1 - Lobar pneumonia, unspecified organism (2) Pleural effusion, right Current Visit: Yes Status: Acute Plan: Acute right profusion status post cholecystectomy most likely secondary atelectasis versus and infection -will continue to monitor closely (3) Hypertension Current Visit: Yes Status: Chronic Qualifiers: Hypertension type: essential hypertension Qualified Code(s): I10 - Essential (primary) hypertension (4) Status post cholecystectomy Current Visit: Yes Status: Chronic Discharge Plan: Home Plan to discharge in: 48 Hours - Code Status/Comfort Care Code Status Assessed: Yes Critical Care: No
[2018-10-25] MEDS ORDERED: HYDROCODONE/APAP 5/325 MG TAB PO ONE (18:20)
[2018-10-26] MEDS ORDERED: MORPHINE 2 MG/ML SYR IV PRN (02:42)
[2018-10-26] MEDS: PIPER/TAZO/NS 3.375gm 3.375 GM/100 ML BAG IVPB SCH ×3 (03:20→20:49)
[2018-10-26] MEDS: LEVOTHYROXINE SOD 0.112 MG TAB PO SCH (05:47)
[2018-10-26] MEDS: LEVOTHYROXINE SOD 0.025 MG TAB PO SCH (05:47)
[2018-10-26] MEDS ORDERED: KETOROLAC 30 MG/ML INJ IV ONE (05:57)
[2018-10-26] MEDS ORDERED: ALPRAZOLAM 0.25 MG TABLET PO ONE (06:04)
[2018-10-26] MEDS: NA CHLORIDE 0.9% 1,000 ML IV SCH (07:20)
--- NOTE | 2018-10-26 08:38 | RAD REPORT ---
EXAM DESCRIPTION: Sarah Pa And Lat (2 Views)10/26/2018 8:29 am CLINICAL HISTORY: Cough COMPARISON: October 24 FINDINGS: Small to moderate right pleural effusion unchanged. Mild right lung opacities unchanged. T he heart remains enlarged
[2018-10-26] MEDS ORDERED: AMLODIPINE 5 MG TAB PO SCH (09:00)
[2018-10-26] MEDS ORDERED: ASPIRIN EC 81 MG TAB PO SCH (09:00)
[2018-10-26] MEDS ORDERED: HYDROCHLOROTHIAZIDE PO SCH (09:00)
[2018-10-26] MEDS ORDERED: OLMESARTAN PO SCH (09:00)
[2018-10-26] MEDS ORDERED: VALSARTAN 80 MG TAB PO SCH (09:00)
[2018-10-26] MEDS ORDERED: METOPROLOL TAR 50 MG TAB PO SCH (09:00)
[2018-10-26] MEDS ORDERED: HOME MED 1 EA UNK (Levothyroxine Sodium [Levothyroxine Sodium] 1 TAB) PO SCH (09:00)
[2018-10-26] MEDS ORDERED: ATORVASTATIN 10 MG TAB PO SCH (09:00)
[2018-10-26] MEDS ORDERED: hydroCHLOROthiazide 12.5 MG CAP PO SCH (09:00)
--- NOTE | 2018-10-26 09:16 | EKG ---
Test Date: 2018-10-24 Test Time: 19:37:18 Seed Laboratory Assistant: LA MEASUREMENT RESULTS: Intervals: Rate: 81 [place]: 148 QRSD: 78 QT: 382 QTc: 443 [place]: P: 36 [place]: 148 QRS: -20 T: 39 INTERPRETIVE STATEMENTS: Normal sinus rhythm Cannot rule out Anterior infarct, age undetermined Abnormal ECG Compared to ECG 10/21/2018 08:54:54 No significant changes Electronically Signed On 10-26-18 09:15:26 AMMONIA WORKER by Roland Wilson
--- NOTE | 2018-10-26 09:50 | P.PN ---
Subjective Date of Service: 10/26/18 Chief Complaint: Pneumonia Patient seen and examined at bedside. Chart reviewed. Case discussed with family members at bedside. Imaging and lab results discussed in detail with family members at bedside as well. This morning patient complains of having pain and the right lower chest area. States that last night she had an anxiety attack and her pain was getting worse that she received morphine and Xanax. Patient appears to be very anxious regarding her prognosis and the plan of care. Plan of care again discussed in detail today at bedside pulse Review of Systems 10-point ROS is otherwise unremarkable Physical Examination - Vital Signs Temperature: 97.4 F Blood Pressure: 116/58 Pulse: 82 Respirations: 16 Pulse Ox (%): 94 - Physical Exam General: Alert, In no apparent distress HEENT: Atraumatic, PERRLA, EOMI Neck: Supple, JVD not distended Respiratory: Normal air movement, Crackles/rales, Expiratory wheezes Cardiovascular: Regular rate/rhythm, Normal S1 S2 Gastrointestinal: Normal bowel sounds, No tenderness Musculoskeletal: No tenderness Integumentary: No rashes Neurological: Normal speech, Normal tone, Normal affect Lymphatics: No axilla or inguinal lymphadenopathy - Studies Medications List Reviewed: Yes Assessment And Plan - Current Problems (Diagnosis) (1) Right lower lobe pneumonia Current Visit: Yes Status: Acute Plan: Right lower lobe pneumonia, failed outpatient therapy. -white blood cell count and pro calcitonin negative however patient was on antibiotics prior this could be falsely negative -on IV Zosyn at this time -pulmonology consulted. Recommendations appreciated -chest x-ray lateral and decubitus at this time -continue with antibiotics until sputum culture -incentive spirometer provided and ambulation encourage Qualifiers: Pneumonia type: due to unspecified organism Qualified Code(s): J18.1 - Lobar pneumonia, unspecified organism (2) Pleural effusion, right Current Visit: Yes Status: Acute Plan: Right-sided pleural effusion post cholecystectomy most likely secondary atelectasis versus infection -IV Lasix x1 given -echocardiogram pending at this -chest x-ray pending at this time to assess for loculation -continue with IV antibiotics and incentive spirometer (3) Hypertension Current Visit: Yes Status: Chronic Qualifiers: Hypertension type: essential hypertension Qualified Code(s): I10 - Essential (primary) hypertension (4) Status post cholecystectomy Current Visit: Yes Status: Chronic - Plan Pending clinical improvement at this time. Patient will require IV antibiotics for next 44-48 hr here in the hospital. Incentive spirometer and ambulation discussed with the patient. Will follow up with chest x-ray to evaluate for loculations. Will follow up with pulmonology recommendations post chest x-ray. Discharge Plan: Home Plan to discharge in: Greater than 2 days - Code Status/Comfort Care Code Status Assessed: Yes Critical Care: No
[2018-10-26] MEDS: FUROSEMIDE 20 MG/ 2ML VIAL IV SCH ×2 (10:17→17:21)
--- NOTE | 2018-10-26 10:22 | RAD REPORT ---
EXAM DESCRIPTION: RAD - Chest Lateral Decubitus - 10/26/2018 10:13 am CLINICAL HISTORY: R effusion? Pleural effusion COMPARISON: Chest Pa And Lat (2 Views) dated 10/26/2018 FINDINGS: A small layering right pleural effusion is seen measuring 2.4 cm in maximum thickness. No significant left-sided pleural effusion is noted.
[2018-10-26] MEDS ORDERED: MAGNESIUM HYDROXIDE 8% 30 ML PO ONE (11:49)
--- NOTE | 2018-10-26 12:14 | P.CNS ---
Date of Consult: 10/26/18 Reason for Consult: Chest pain, shortness of breath and pleural effusion Chief Complaint: Pneumonia History of Present Illness: Patient is 68 years of age recently had a cholecystectomy admitted with shortness of breath bilateral chest pains and patient was treated with Augmentin as an outpatient for a presumed loculated effusion on the right side patient did not improve continued to get worse complaining of pleuritic chest pain Allergies No Known Allergies Allergy (Verified 10/24/18 22:37) Home Medications: Amlodipine [Norvasc*] 5 mg PO DAILY 10/25/18 Aspirin [Adult Aspirin] 1 tab PO DAILY 10/25/18 Atorvastatin Calcium [Lipitor*] 10 mg PO DAILY 10/25/18 Budesonide/Formoterol Fumarate [Symbicort 160-4.5 Mcg Inhaler] 2 puff IH BID 11/10 Hydrochlorothiazide-Olmesartan 12.5mg-40mg 1 tab PO DAILY 10/25/18 Ibuprofen/Famotidine [Duexis 800-26.6 mg Tablet] 1 tab PO TID 10/25/18 Levothyroxine Sodium 1 tab PO DAILY 10/25/18 Metoprolol Tartrate [Lopressor*] 50 mg PO DAILY 10/25/18 Montelukast Sodium 10 mg PO DAILY 10/25/18 - Past Medical/Surgical History Diabetic: No -: HTN -: HYPOTHYROIDISM -: HIGH CHOLESTEROL -: SLEEP APNEA -: ASTHMA -: -: herniorrhaphy -: Cholecystectomy - Family History Father Family History: Reviewed- Non-Contributory - Social History Alcohol use: Yes Place of Residence: Home Review of Systems General: Weakness Respiratory: Cough, Shortness of Breath, Pleuritic Pain Physical Examination Temp Pulse Resp BP Pulse Ox 97.4 F 71 16 140/65 94 10/26/18 09:49 10/26/18 10:17 10/26/18 09:49 10/26/18 10:17 10/26/18 09:49 General: Alert, Oriented x3, Mild distress Neck: Supple Respiratory: Clear to auscultation bilaterally Cardiovascular: No edema, Regular rate/rhythm Gastrointestinal: Normal bowel sounds, Soft and benign - Problems (1) Pleural effusion, right Current Visit: Yes Status: Acute Plan: Patient is 68 years of age admitted with shortness of breath pleuritic chest pain he does have a right-sided pleural effusion no evidence of DVT Regionally I thought that she had a loculated effusion on the right side it seems to have progressed although a decubitus film shows 24 mm layering exclusively on the right side diagnostic data so far is unremarkable vital signs are stable patient 's D-dimer is markedly . Possibility of thromboembolism exists echocardiogram pending Lasix ordered CT angio also ordered continue with Zosyn oxygenation satisfactory
--- NOTE | 2018-10-26 13:31 | RAD REPORT ---
EXAM DESCRIPTION: CT - Chest For Pe Angio - 10/26/2018 1:17 pm CLINICAL HISTORY: Chest pain COMPARISON: October 08, 2018 CT TECHNIQUE: Dynamically enhanced axial 3 mm thick images of the chest were obtained during administra tion of <100> mL Isovue 370 IV contrast. Coronal and oblique reconstruction images were generated and reviewed. Exam utilizes a protocol for optimal evaluation of pulmonary arterial tree. Maximum intensity projections 3D imaging was utilized All CT scans are performed using dose optimization technique as appropriate and may include automated exposure control or mA/KV adjustment according to patient size. FINDINGS: A pulmonary embolus is not seen. A thoracic aortic aneurysm is not noted. A bovine aorta A small to moderate right pleural effusion is present. A pericardial effusion is not seen. Right lower lobe atelectasis is seen. 28 millimeter round opacity posterior right lower lobe. Mild ad ditional right lower lobe opacity persists IMPRESSION: Negative for a pulmonary embolism. Small to moderate right pleural effusion 20 millimeter round opacity right lower lobe may represent rounded atelectasis or fluid loculated wit hin the fissure. Mild additional right lower lobe opacities probably represent pneumonia.
--- NOTE | 2018-10-26 13:32 | ECHO ---
HEIGHT: 5 ft 6 in WEIGHT: 190 lb 1.6 oz DATE OF STUDY: 10/26/[address]: Madalyn Stevens MD 2-DIMENSIONAL: YES M.MODE: YES DOPPLER: YES COLOR FLOW: YES TDS: PORTABLE: DEFINITY: BUBBLE STUDY: DIAGNOSIS: SHORTNESS OF BREATH CARDIAC HISTORY: CATHERIZATION: NO SURGERY: NO PROSTHETIC VALVE: NO PACEMAKER: NO MEASUREMENTS (cm) DIASTOLIC (NORMALS) SYSTOLIC (NORMALS) IVSd 1.0 (0.6-1.2) LA Diam 3.3 (1.9-4.0) LVEF 73% LVIDd 4.3 (3.5-5.7) LVIDs 2.5 (2.0-3.5) %FS 42% LVPWd 1.2 (0.6-1.2) Ao Diam 3.0 (2.0-3.7) 2 DIMENSIONAL ASSESSMENT: RIGHT ATRIUM: NORMAL LEFT ATRIUM: NORMAL RIGHT VENTRICLE: NORMAL LEFT VENTRICLE: NORMAL TRICUSPID VALVE: NORMAL MITRAL VALVE: NORMAL PULMONIC VALVE: NORMAL AORTIC VALVE: NORMAL PERICARDIAL EFFUSION: NONE AORTIC ROOT: NORMAL LEFT VENTRICULAR WALL MOTION: NORMAL DOPPLER/COLOR FLOW: MILD AORTIC REGURGITATION. MILD TRICUSPID REGURGITATION. NORMAL RIGHT VENTRICULAR SYSTOLIC PRESSURE. COMMENTS: NORMAL TWO DIMENSIONAL ECHOCARDIOGRAM. MILD AORITC REGRUGITATION. MILD TRICUSPID REGURGITATION. TECHNOLOGIST: ANNABELLA BURRELL
[2018-10-26] MEDS: ATORVASTATIN 10 MG TAB PO SCH (20:47)
[2018-10-26] MEDS: ASPIRIN EC 81 MG TAB PO SCH (20:47)
[2018-10-26] MEDS: AMLODIPINE 5 MG TAB PO SCH (20:47)
[2018-10-26] MEDS: hydroCHLOROthiazide 12.5 MG CAP PO SCH (20:48)
[2018-10-26] MEDS: METOPROLOL TAR 50 MG TAB PO SCH (20:48)
[2018-10-26] MEDS: VALSARTAN 80 MG TAB PO SCH (20:49)
[2018-10-26] MEDS: HYDROCODONE/APAP 5/325 MG TAB PO PRN (21:00)
[2018-10-27] MEDS: PIPER/TAZO/NS 3.375gm 3.375 GM/100 ML BAG IVPB SCH ×2 (03:48→12:00)
[2018-10-27] MEDS: LEVOTHYROXINE SOD 0.025 MG TAB PO SCH (05:37)
[2018-10-27] MEDS: HYDROCODONE/APAP 5/325 MG TAB PO PRN (05:37)
[2018-10-27] MEDS: LEVOTHYROXINE SOD 0.112 MG TAB PO SCH (05:37)
[2018-10-27] MEDS: FUROSEMIDE 20 MG/ 2ML VIAL IV SCH (08:49)
[2018-10-27] MEDS ORDERED: BISACODYL 10 MG RECTAL SUPP PR PRN (09:18)
[2018-10-27] MEDS: KETOROLAC 30 MG/ML INJ IV PRN (12:12)
--- NOTE | 2018-10-27 12:13 | P.PN ---
Subjective Date of Service: 10/27/18 Chief Complaint: Pleural effusion Patient is still complaining of right-sided pleuritic chest pain denies any fever chills cough sputum or hemoptysis Review of Systems Unremarkable Physical Examination - Vital Signs Temperature: 98.9 F Blood Pressure: 138/68 Pulse: 70 Respirations: 20 Pulse Ox (%): 93 - Physical Exam General: Alert, Oriented x3, Mild distress HEENT: Atraumatic Neck: Supple Respiratory: Clear to auscultation bilaterally, Crackles/rales (Some crackles at the right base) Cardiovascular: No edema, Normal pulses - Studies Medications List Reviewed: Yes Assessment & Plan - Problems (Diagnosis) (1) Pleural effusion, right Current Visit: Yes Status: Acute Plan: Patient has a small pleural effusion on decubitus x-rays complaining of right- sided pleuritic chest pain has had a trial of steroids before that helped her pain as currently no evidence of sepsis no evidence of thromboembolism or DVT pro calcitonin level is negative labs unremarkable CBC is also normal cultures are negative discuss with the radiologist pleural effusion is too small for them to do a thoracentesis informed the patient I have stopped all the antibiotics trial of prednisone for vital signs are stable possible discharge home tomorrow to follow up in my office in 1-2 weeks continue with prednisone 10 mg twice a day for 10 days and can use nonsteroidals for pain relief Dc Lasix echocardiogram normal
[2018-10-27] MEDS: predniSONE 20 MG TAB PO SCH ×2 (12:52→20:18)
--- NOTE | 2018-10-27 17:55 | PN ---
Date of Progress Note: 10/27/2018 Subjective: The patient was seen and examined. Chart reviewed and case discussed with RN and Dr. Glenn jackson. Family at the bedside. Treatment plan explained. All questions answered. Spoke with Dr. Darcy charles, who does not feel that his effusion is amenable to drainage. Code Status: Full. Medications: List reviewed. Objective: Vital signs: Temperature 98.9, heart rate 70, blood pressure 138/68, respirations 20, O2 93% on room air. General: Awake, alert, oriented x3. Elderly female. Obese. CV: S1 and S2. Regular rate and rhythm. Peripheral pulses present. Respiratory: Moving air well bilaterally except at the right base. No stridor. No use of accessory muscles. Gastrointestinal: Abdomen is soft, nontender, nondistended. Positive bowel sounds. Extremities: No clubbing, cyanosis, or edema. Neuro: Cranial nerves 2 through 12 intact grossly. No focal neurological deficit. Speech is normal . Laboratory Data: Labs are pending at this time. Blood cultures no growth to date. Echocardiogram s hows EF of 73%, mild aortic regurgitation. Mild tricuspid regurgitation. Assessment: A 68-year-old female with: 1.Right lower lobe pneumonia. Failed outpatient treatment. Pulmonology does not feel that this is pneumonia. IV antibiotics have been discontinued. We will continue to monitor. Cultures are negati ve. 2.Right pleural effusion secondary to atelectasis, infection or possibly mass. Echocardiogram is no rmal, shows EF of 73%. The patient is status post cholecystectomy, likely due to atelectasis. 3.Constipation. The patient has been on pain medications since surgery. We will provide stool soft eners. Doubt any ileus or small bowel obstruction. CT imaging did not show any obstruction. 4.Essential hypertension, stable. 5.Status post cholecystectomy and umbilical hernia repair. 6.Deep venous thrombosis prophylaxis addressed. Plan: Trial of steroids. DC IV antibiotics. We will add Toradol for pain. Likely discharge in the next 24 hours depending on clinical response. SA/MODL Voice ID: [id number] Report ID: [id number]
[2018-10-27] MEDS: METOPROLOL TAR 50 MG TAB PO SCH (20:17)
[2018-10-27] MEDS: ASPIRIN EC 81 MG TAB PO SCH (20:17)
[2018-10-27] MEDS: ATORVASTATIN 10 MG TAB PO SCH (20:17)
[2018-10-27] MEDS: VALSARTAN 80 MG TAB PO SCH (20:18)
[2018-10-27] MEDS: hydroCHLOROthiazide 12.5 MG CAP PO SCH (20:18)
[2018-10-27] MEDS: AMLODIPINE 5 MG TAB PO SCH (20:26)
[2018-10-28] MEDS: LEVOTHYROXINE SOD 0.112 MG TAB PO SCH (06:09)
[2018-10-28] MEDS: LEVOTHYROXINE SOD 0.025 MG TAB PO SCH (06:09)
[2018-10-28 06:35] LABS: Absolute Lymphocytes (CBC) 1.2 K/uL (0.7-4.9); Absolute Monocytes 0.4 K/uL (0.1-1.3); Absolute Neutrophil 8.7 K/uL (1.8-8.0); Basophils % 0.3 % (0-1.3); Hematocrit 38.2 % (36.0-45.0); Lymphocytes % 11.5 % (15.3-44.8); MPV 8.2 fL (7.6-11.3); Monocytes % 4.3 % (3.3-12.3); RBC Red Blood Cell Count 4.22 M/uL (3.86-4.86)
[2018-10-28 06:52] LABS: Albumin 3.4 g/dL (3.4-5.0); Bilirubin Total 0.4 mg/dL (0.2-1.0); Potassium 4.1 mmol/L (3.5-5.1); Protein, Total 7.4 g/dL (6.4-8.2)
[2018-10-28] MEDS: predniSONE 20 MG TAB PO SCH (08:02)
--- NOTE | 2018-10-28 08:40 | P.PN ---
Subjective Date of Service: 10/28/18 Chief Complaint: Pleural effusion and chest pain Patient is doing better she still complains of chest pain pain medication helped Review of Systems Unremarkable Physical Examination - Vital Signs Temperature: 97.1 F Blood Pressure: 134/61 Pulse: 58 Respirations: 18 Pulse Ox (%): 91 - Physical Exam General: Alert, In no apparent distress, Oriented x3 Neck: Supple Respiratory: Clear to auscultation bilaterally, Diminished - Studies Medications List Reviewed: Yes Assessment & Plan - Problems (Diagnosis) (1) Pleural effusion, right Current Visit: Yes Status: Acute Plan: Patient has a small pleural effusion discuss with the radiologist unable to do thoracentesis is a small effusion no evidence of infection for thromboembolism can be discharged home on prednisone 10 mg twice a day for 2 weeks take over-the -counter Naprosyn and Pepcid or Zantac chest x-ray next week follow with me in 2 weeks saturation satisfactory
[2018-10-28] MEDS: KETOROLAC 30 MG/ML INJ IV PRN (08:44)
[2018-10-28] MEDS ORDERED: POLYETHYL GLY 3350 17 GM/DOSE PO SCH (09:00)
--- NOTE | 2018-10-29 12:54 | DS ---
Date of Discharge: 10/28/2018 Motor Man: Honorio Verde MD, with Pulmonology. Admitting Diagnoses: 1.Right lower lobe pneumonia. 2.History of infection unresponsive to antibiotic therapy. 3.Status post recent cholecystectomy. 4.Right pleural effusion. 5.Essential hypertension. Discharge Diagnoses: 1.Right lower lobe pneumonia, failed outpatient treatment. 2.Right pleural effusion secondary to atelectasis, not able to be drained. 3.Constipation, resolved. 4.Recent cholecystectomy and umbilical hernia repair. The patient to have margaret removed in the ne xt 1 to 3 days. Follow up with surgeon. 5.Essential hypertension, stable. 6.Obesity. BMI is 30. Hospital Course: The patient is a 68-year-old female with past medical history of hypertension, hypo thyroidism, hyperlipidemia, sleep apnea, and asthma, comes in after recent cholecystectomy and umbili gonzales hernia repair with pneumonia. The patient has failed outpatient treatment with Augmentin. The p atient was having some pleuritic chest pain. Multiple imaging studies were done to further elucidate the etiology of her pain. CT angio aorta for dissection showed no aortic dissection. Did show mild right lower lobe infiltrate consistent with pneumonia and 27 mm right lower lobe nodule unchanged, w hich may represent infection, atelectasis, or neoplasm. Doppler venous study was also done, which sh owed no DVT. CT angio chest was done to rule out PE, which was negative, did show small to moderate right pleural effusion, 20 mm right lower opacity may represent rounded atelectasis or fluid loculate d within the fissure. I spoke with Dr. Meza, who did not feel that this was amenable to drainage . The patient was started on Toradol. Chest x-ray was repeated and again showed the unchanged PE ef fusion. The patient also started on steroids. The patient did have significant improvement in her c ondition and felt significantly better. The patient's electrolytes were corrected. The white count remained stable. She was not septic. Her procalcitonin was negative. Her blood cultures did not sh ow any growth. Echocardiogram was also done to rule out CHF. Her ejection fraction was 73%. Mild a ortic regurgitation and tricuspid regurgitation were found. Overall, the patient did well. She was then cleared for discharge from Pulmonology standpoint. She was able to ambulate, had significant im provement in her symptoms, was not short of breath, did not require supplemental oxygenation. The tila barton will be discharged on a steroid taper. Rest of the medications are as per medication reconcili ation list. Followup: Follow up with primary care physician in 2 to 3 days. Have a repeat chest x-ray in 1 week . Follow up with Dr. Verde in 2 weeks for pulmonology. Take [id number] Pepcid or Zantac al eloy with nonsteroidal anti-inflammatory. Diet: Regular. Activity: As tolerated. Physical Examination: General: Awake, alert, oriented x3, not in acute distress. Elderly female, obese. CV: S1, S2. No murmurs. Respiratory: Moving air well bilaterally. Abdomen: Soft, nontender, nondistended. Positive bowel sounds. Extremities: No clubbing, cyanosis, or edema. Neurologic: Nonfocal. Total time spent discharging the patient was 39 minutes. /JAVI Voice ID: [id number] Report ID: [id number]
== END 2018-10-28 12:34 | disposition home or self-care (01) | DRG 194 ==
LOC: ER 18:51 → ERHOLD 21:04 → 2ND 22:18
PROVIDERS: ADMIT Hospitalist; ATTEND Family Medicine
DX: J18.1 Lobar pneumonia, unspecified organism (principal); J90 Pleural effusion, not elsewhere classified; J98.11 Atelectasis; K59.00 Constipation, unspecified; I10 Essential (primary) hypertension; E66.9 Obesity, unspecified; Z68.30 Body mass index [BMI] 30.0-30.9, adult; E03.9 Hypothyroidism, unspecified; E78.5 Hyperlipidemia, unspecified; G47.30 Sleep apnea, unspecified; J45.909 Unspecified asthma, uncomplicated; I08.2 Rheumatic disorders of both aortic and tricuspid valves; Z90.49 Acquired absence of other specified parts of digestive tract
CPT/HCPCS: 36415; 71045; 71046; 71275; 74175; 80048; 80053; 80076; 82550; 82553; 82962; 83690; 83735; 83880; 84145; 84484; 85025; 85379; 85610; 85730; 87040; 93005; 93306; 93970; 94640; 96361; 96365; 96367; 96375; 99285; J0692; J1940; J2270; J2405; J2543; J3010; J7030; J7512; Q9967